=== PATIENT | male | born 1970 | race Caucasian/White ===

== ENCOUNTER 2020-04-03 10:08 | Day surgery (SDC) | payer OTHER ==
[2020-04-03] MEDS ORDERED: Depo-Medrol 40 MG/ML IM ONE (10:09)
[2020-04-03] MEDS ORDERED: Xylocaine 1% Vial 30 ML PF IJ ONE (10:09)
[2020-04-03] MEDS ORDERED: Sodium Chloride 0.9(Preservative Free) 10 ML IJ ONE (10:09)
[2020-04-03] MEDS ORDERED: DIPRIVAN 200 MG/20 ML IV ONE (12:25)
[2020-04-03] MEDS ORDERED: Ketamine HCl 50 MG/ML ONE (12:25)
--- NOTE | 2020-04-03 13:00 | XRAY ---
Indication: Lumbar MICHELLE. Intraoperative fluoroscopy was provided for 11 seconds. 2 digital spot images submitted for interpretation demonstrates midline posterior needle tip projecting just posterior to the L4-L5 interspace. Small amount of contrast injected for needle tip placement. Correlate with intraoperative findings/report.
--- NOTE | 2020-04-03 13:05 | XRAY ---
11 seconds fluoroscopy time in surgery for lumbar MICHELLE.
[2020-04-03] MEDS ORDERED: Lactated Ringers 1,000 ML IV ONE (13:50)
== END 2020-04-03 12:58 | disposition home or self-care (01) ==
LOC: SDC-PAIN 10:08
PROVIDERS: ATTEND Psychiatry & Neurology Pain Medicine
DX: M54.16 Radiculopathy, lumbar region (principal); F41.8 Other specified anxiety disorders; K21.9 Gastro-esophageal reflux disease without esophagitis; Z79.899 Other long term (current) drug therapy
CPT/HCPCS: 62323; 72100; 77003; J1030; J2001; J2704; Q9966

== ENCOUNTER 2020-12-11 12:25 | Day surgery (SDC) | payer OTHER ==
[2020-12-11] MEDS ORDERED: Depo-Medrol 40 MG/ML IM ONE (12:26)
[2020-12-11] MEDS ORDERED: Sodium Chloride 0.9(Preservative Free) 10 ML IJ ONE (12:26)
[2020-12-11] MEDS ORDERED: MORPHINE SULFATE 10 MG/ML ONE (15:23)
[2020-12-11] MEDS ORDERED: Lactated Ringers 1,000 ML IV ONE (15:30)
[2020-12-11] MEDS ORDERED: Ketamine HCl 50 MG/ML ONE (15:32)
[2020-12-11] MEDS ORDERED: DIPRIVAN 200 MG/20 ML IV ONE (15:32)
[2020-12-11] MEDS ORDERED: SUBLIMAZE 100 MCG/2 ML ONE (15:34)
--- NOTE | 2020-12-11 17:53 | XRAY ---
Indication: right L4-S1 transforaminal MICHELLE. Intraoperative fluoroscopy was provided for 39 seconds. 4 digital spot images submitted for interpretation demonstrates posterior needle tips projecting over the expected right L4 and L5 nerve roots. Small amount of contrast injected for needle tip placement. Correlate with intraoperative findings/report.
--- NOTE | 2020-12-11 17:55 | XRAY ---
39 seconds fluoroscopy time in surgery for right L4-S1 transforaminal MICHELLE.
== END 2020-12-11 16:00 | disposition home or self-care (01) ==
LOC: SDC-PAIN 12:25
PROVIDERS: ATTEND Psychiatry & Neurology Pain Medicine
DX: M47.816 Spondylosis without myelopathy or radiculopathy, lumbar region (principal); Z79.899 Other long term (current) drug therapy
CPT/HCPCS: 72100; 77003; J1030; J2270; J2704; J3010